=== PATIENT | female | born 1995 | race Hispanic/Latino ===

== ENCOUNTER 2020-11-11 06:01 | Inpatient (IN) | payer MEDICAID, SELFPAY ==
[2020-11-11] VITALS (22 sets, daily range): BP systolic 101–127; BP diastolic 39–97; PULSE 54–176; RESP 16–18; TEMP 36.4–36.7; O2SAT 100; BMI 27.6
--- NOTE | 2020-11-11 07:02 | LDADM ---
This patient, Lissette Fish, was admitted to Labor/Delivery/Recovery 106 on 11/11/20 at 06:01. Plans for labor, pain management and were discussed with patient. Patient/family oriented to hospital policies and general routines including ID bracelet, bed and alarms, visiting hours, pain management, procedures, bathroom and other care routines, personal items, smoking policy, room service/diet and guest tray routines, infant security routines, and visiting hours. Patient/Family are encouraged to report perceived risks to care and to ask questions if they do not understand what they are told or what they should do. See OBIX for further documentation.
[2020-11-11 07:18] LABS: Basophils Absolute Auto 0.1 K/mm3 (0.0-0.1); Basophils Percent Auto 0.6 % (0.2-1.2); Eosinophils Absolute Auto 0.1 K/mm3 (0-0.3); Eosinophils Percent Auto 0.5 % (0-4.4); Hematocrit 36.3 % (37.0-47.0); Hemoglobin 12.5 g/dL (12.0-15.0); Immature Granulocyte Absolute 0.24 K/mm3 (0.00-0.031); Immature Granulocyte Percent A 1.8 % (0-0.5); Lymphocytes Absolute Auto 1.54 K/mm3 (0.9-3.2); Lymphocytes Percent Auto 11.8 % (18.3-44.2); Mean Corpuscular HGB Conc 34.4 g/dl (32-36); Mean Corpuscular Hemoglobin 28.8 pg (26-34); Mean Corpuscular Volume 83.6 fl (80-100); Mean Platelet Volume 11.3 fl (7.4-10.4); Monocytes Absolute Auto 0.7 K/mm3 (0.1-0.6); Neutrophils Absolute Auto 10.5 K/mm3 (1.3-6.7); Neutrophils Percent Auto 80.3 % (45.5-73.1); Platelet Count Result 213 k/mm3 (150-375); Red Blood Count 4.34 M/mm3 (4.2-5.4); Red Cell Distribution Width 12.7 % (11.5-14.5)
--- NOTE | 2020-11-11 07:30 | WPDOBADMIT ---
Obstetrics - Admit Note Admission Note: record reviewed. No pertinent additions to the history and/or any subsequent changes in the physical findings that are not consistent with the expected course of the were found. Pt arrived in labor, GBS neg. SVE 4-5/80/-1, AROM moderate amount of clear, odorless, fluid Additions to the history and/or subsequent changes in the physical findings follow. None.
[2020-11-11] MEDS: LACTATED RINGERS 1,000 ML 125 ML IV CONT (07:37)
[2020-11-11] MEDS: fentaNYL CITRATE INJ (*CRX) 100 MCG/2 ML VIAL IV PUSH (08:52)
[2020-11-11] MEDS: OXYTOCIN 30 UNITS/NS 500 ML 30 UNITS/500 ML BAG 999 UNITS IV CONT (09:32)
--- NOTE | 2020-11-11 09:41 | PM.OBPRVD ---
OB - Delivery Note Procedure Delivery date: 11/11/20 Procedure: vaginal delivery Intrapartal events: None Induction method: none Delivery augmentation: rupture of membranes Delivery monitor: external FHT and external uterine Route of delivery: Laceration Description: None Specimen: No Quantitative Blood Loss (ml): 27 Anesthesia type: None Disposition: other () Baby Date of : 11/11/20 Time of : 09:29 Weeks of gestation at delivery: 39 gender: Female Weight (pounds): 6 Weight (ounces): 11 presentation: vertex position: Left Occiput Anterior Placenta delivery description: Spontaneous cord vessel description: 3 Vessels and Clamped/Cut score one minute: 6 score five minutes: 9 Narrative: Mom and baby in stable condition.
[2020-11-11] MEDS: OXYTOCIN 30 UNITS/NS 500 ML 30 UNITS/500 ML BAG 125 UNITS IV CONT (10:00)
[2020-11-11] MEDS: IBUPROFEN 600 MG TABLET PO ×3 (10:02→23:50)
--- NOTE | 2020-11-11 12:38 | PC.NURSE ---
Pt arrived on unit via wheelchair accompanied by spouse and and taken to room 290. PT oriented to room and surrounding area. PT introductions made and plan of care discussed per post , pain management, breast feeding, daily care activities. Welcome packet reviewed and discussed. PT verbalized understanding of such care.
--- NOTE | 2020-11-11 12:53 | OBPPTRN ---
Patient transferred to post room #290 via W/C . Support person present. Oriented to unit, room, information board, rooming in, admission packet and security measures. Patient verbalizes understanding.
[2020-11-11] MEDS: DOCUSATE SODIUM 100 MG CAPSULE PO (16:47)
[2020-11-11] MEDS: LANOLIN (LANSINOH) 7.5 GM CREAM 1 APPLIC TOPICAL (18:32)
[2020-11-12] MEDS: ACETAMINOPHEN 325 MG TABLET 650 MG PO (05:24)
[2020-11-12 05:52] LABS: Hematocrit 31.5 % (37.0-47.0); Hemoglobin 10.9 g/dL (12.0-15.0)
--- NOTE | 2020-11-12 08:21 | PM.OBPNVD ---
OB - PN: Subj Subjective Date/time seen: 11/12/20 08:21 Patient comments: no complaints baby status: doing well OB - PN: Obj Data Labs CBC & Chem 7: 11/12/20 05:29 Labs: Laboratory Results - last 24 hr 11/11/20 11/12/20 07:02 05:29 Hgb 10.9 L Hct 31.5 L Blood Type O Positive Antibody Screen Negative OB - PN A/P Plan day: 1 Plan: routine care and discharge home Comments: Pt desires discharge. Time Spent With Patient Time: Total time spent is greater than 50% in coordination of care (as documented) at patient's floor/unit and/or counseling patient: Time with patient: less than 15 minutes Review of Systems Review of Systems: All systems reviewed & are unremarkable except as noted in HPI and below Exam Narrative: Exam Narrative: Fundus firm and vaginal flow controlled. No lower ext redness, warmth, or edema. Negative homans. Const: General: comfortable Chest: Breast/axilla inspection: normal inspection of the breasts Resp: Effort & Inspection: normal respiratory effort Cardio: Rate: regular rate GI: GI Palp: Yes Soft to palpation Psych: Appearance: grossly normal Affect: normal affect Attitude: cooperative Thought content: Yes Normal thought content present Judgement: Good judgement present (Psych)
[2020-11-12 08:30] VITALS: PULSE 67; RESP 18; O2SAT 98
--- NOTE | 2020-11-12 08:30 | PC.NURSE ---
PT introductions made and plan of care discussed per post , pain management, breast feeding, daily care activities and pending discharge to home. PT verbalized understanding fo such care.
[2020-11-12 09:10] VITALS: BP 105/71; PULSE 67; RESP 18; TEMP 36.4; O2SAT 98
[2020-11-12] MEDS: MULTIVIT/MIN/PREN/FOL AC/IRON TABLET 1 TAB PO (10:51)
[2020-11-12] MEDS: DOCUSATE SODIUM 100 MG CAPSULE PO (10:51)
[2020-11-12] MEDS: IBUPROFEN 600 MG TABLET PO ×2 (10:51→15:57)
--- NOTE | 2020-11-12 14:45 | PC.NURSE ---
PT received discharge instructions per protocol and verbalized understanding of such care.
[2020-11-14 09:11] LABS: Rapid Plasma Reagin Non-Reactive (NonReactive)
[2020-11-14 11:26] VITALS: BP 112/74; PULSE 78; RESP 16; TEMP 37.5; O2SAT 100
--- NOTE | 2020-11-16 08:08 | PM.OBDSVD ---
DS: Admitting Diagnosis Admitting Diagnosis Admitting Diagnosis: Labor OB - DS: Summary OB Procedures : None OB Procedures Intrapartum: Spontaneous Vag Delivery OB Procedures: : None Time Spent with Patient Time attestation: Total time spent providing and/or coordinating discharge services: Discharge Plan Discharge Attending physician on discharge: Lilibeth Borja Consulting providers: Adriana Wood ; Lilibeth Borja Discharging Clinician: Adriana Wood Patient Disposition: Home, Self-Care Activity: pelvic rest Diet: as tolerated Discharge Instructions: Education: Mom and Baby Guide Given to: Mother Follow-Up: Call your delivering provider's office for an appointment to be seen in: 4 Weeks Mom and baby should come to the [facility] for the follow-up appointment. Appointment Date/Time: November 14, 2020 at 11:00 am What to expect at your follow-up visit: Blood Pressure Check Call [phone] if you are unable to keep your appointment time. BREAST CARE: * Wear a snug supportive bra. * For engorgement discomfort: Breast Feeding: * Apply warm moist washcloths * Express milk as needed to relieve engorgement * Wear loose clothing Bottle Feeding: * May apply ice packs * For sore nipples: * Identify correct latch-on * Apply warm moist washcloths before and after nursing * Air dry nipples after nursing * May apply Lansinoh cream to nipples PERINEAL CARE: * Until bleeding stops, use your fernanda bottle after urinating * Change your pad frequently throughout the day * You may take sitz baths several times a day (fill your bathtub with warm water and soak for 20 minutes.) Do NOT bathe in the water * No tub baths until seen by your physician - You may shower ACTIVITY: * Rest as much as possible. * Do not exercise or lift anything heavier than your baby (such as laundry or other children.) * Avoid stairs or driving as much as possible. * Do not put anything into the vagina. No douching, tampons, or sexual activity until seen by physician. NOTIFY PHYSICIAN IF YOU HAVE ANY QUESTIONS OR IF ANY OF THE FOLLOWING SYMPTOMS OCCUR: * If your perineum becomes red, swollen, or more painful than what you have experienced in the hospital. * If your vaginal bleeding becomes foul smelling. * If your vaginal bleeding becomes more heavy than a period or if your bleeding changes from pink to bright red. However, you may pass an occasional walnut-sized clot once or twice for the first week . * If you experience a sharp, shooting pain in you calves. * If you discover a hard, reddened area on your breast or if you experience flu-like symptoms. *If you have a fever of 100.4 or greater DIET: * Eat regular, well-balanced meals. * Drink plenty of fluids daily. If , drink to thirst. Patient Instructions: Antibiotic Form Stand Alone Forms: General Discharge Information Follow-up/Referrals: Adriana Wood CNM [Certified Nurse Senior Network Systems Engineer] - Discharge Medications: Continued prenat.vits,verena,[id number] Tablet 1 tablet PO DAILY RF: 0 Date of admission: 11/11/20 06:01 Primary Care Provider: PHYSICIAN,RECEIVING TANK OPERATOR Admitting Provider: Kirill Biswas Attending physician on admission: Kirill Biswas Condition: Stable
== END 2020-11-12 15:27 | disposition home or self-care (01) | DRG 560 ==
LOC: ANHLDR 06:48 → ANHOB2 12:43
PROVIDERS: Advanced Practice Midwife; Admitting Provider Obstetrics & Gynecology; Visit Provider Obstetrics & Gynecology
DX: O35.8XX0 Maternal care for other (suspected) fetal abnormality and damage, not applicable or unspecified (principal); Z3A.38 38 weeks gestation of pregnancy; Z37.0 Single live birth
CPT/HCPCS: 36415; 85014; 85018; 85025; 86592; 86850; 86900; 86901; A9270; J2590; J3010; J7120

== ENCOUNTER 2022-03-30 12:53 | Emergency (ER) | payer OTHER, SELFPAY ==
--- NOTE | 2022-03-30 12:58 | ED.FEMALEGU ---
HPI - Female Genitourinary General Chief complaint: Urogenital-Female Stated complaint: uti Time Seen by Provider: 03/30/22 12:58 Source: patient, RN notes reviewed and old records reviewed Mode of arrival: ambulatory Limitations: no limitations History of Present Illness HPI Narrative: 26-year-old female presents to the [facility] with complaints of urinary frequency, urgency burning and blood in her urine since yesterday. Patient has a Nexplanon implant, denies chances of . Denies fevers, chest pain, abdominal pain. No CVA tenderness Related Data Allergies Allergy/AdvReac Type Severity Reaction Status Date / Time No Known Allergies Allergy Verified 10/28/20 13:44 Review of Systems Review of Systems: All systems reviewed & are unremarkable except as noted in HPI and below Constitutional: Constitutional: Reports no additional constitutional complaints, Denies chills and Denies fatigue Eyes: Eyes: Reports no additional eye complaints ENT: Reports system reviewed and no additional complaints, except as documented Cardiovascular: Cardiovascular: Reports no additional cardiovascular complaints Respiratory: Respiratory: Reports no additional respiratory complaints Gastrointestinal: Gastrointestinal: Reports no additional gastrointestinal complaints, Denies abdominal pain, Denies diarrhea, Denies nausea and Denies vomiting Genitourinary: Genitourinary: Reports as per HPI (Urinary frequency), Reports hematuria, Reports dysuria, Denies flank pain and Denies vaginal discharge Musculoskeletal: Musculoskeletal: Reports no additional musculoskeletal complaints and Denies back pain Integumentary/Breasts: Skin/Breast: Reports system reviewed and no additional complaints, except as docu Neurologic: Reports system reviewed and no additional complaints, except as documented Psychiatric: Psychiatric: Reports no additional psychiatric complaints Endocrine: Endocrine: Denies fatigue Allergic/Immunologic: Allergic/Immunologic: Reports no additional allergic/immunologic complaints [facility] Past Medical History Medical History Patient denies medical problems Surgical History Surgical History No pertinent past surgical history Family History Family History Father Hypertension High cholesterol Social History Social History Smoking status: Former smoker Additional smoking assessment comments: Never smoked daily; just occasional Substance use: never Spiritual care concerns: No Comments At the time of my signature, I reviewed and agree with the nursing past medical, surgical, social, and family history. There is no relevant family history pertinent to the patient complaint. Exam Const: General: healthy appearing, no acute distress and alert Nutritional Appearance: well nourished Orientation/consciousness: patient oriented x3 Limitations: no limitations HENMT: Head: normal to inspection Ears: external ears normal Eyes: Conjunctivae: conjunctivae normal Pupils: Equal, round and reactive pupils present Neck: Neck: normal visual inspection, no lymphadenopathy and no meningeal signs Chest: Chest palpation & inspection: normal inspection of the chest and abnormal inspection of the chest Resp: Effort & Inspection: normal respiratory effort Auscultation: clear to auscultation bilaterally Cardio: Rate: regular rate Rhythm: regular rhythm GI: GI Palp: Yes Soft to palpation and No Tenderness to palpation present (GI) : General: Yes no CVA tenderness Back/Spine/Pelvis: Back: no CVA tenderness Skin: General skin exam: normal color Rashes: no rashes Wounds: no wounds Neuro: General: patient oriented x3, moves all extremities, no meningeal signs and no focal motor deficits Cranial ne
[2022-03-30 13:03] VITALS: BP 121/73; PULSE 79; RESP 16; TEMP 36.6; O2SAT 100
[2022-03-30 13:04] VITALS: BP 121/73; PULSE 79; RESP 16; TEMP 36.6; O2SAT 100
== END 2022-03-30 13:17 | disposition home or self-care (01) ==
PROVIDERS: Emergency Provider Nurse Practitioner
DX: N30.01 Acute cystitis with hematuria (principal); Z87.891 Personal history of nicotine dependence
CPT/HCPCS: 81003; 87077; 87086; 87186; 99213; G0463

== ENCOUNTER 2024-05-30 13:40 | Emergency (ER) | payer SELFPAY ==
--- NOTE | ~2024-05-30 | US_ITS ---
EXAMINATION: US OB transvaginal INDICATION: 8 weeks, bleeding, cramping TECHNIQUE: Sonography of the pelvis was performed by transvaginal techniques. COMPARISON: None. RESULT: Uterus: 8.7 x 4.4 x 5.6 cm. Anteverted. Homogenous myometrium. Intrauterine gestational sac: Single present. Mean Sac Diameter: 1.92 cm, corresponding gestational age 6 week 6 days. Yolk sac: 0.4 cm . Embryo: Single present. [place] rump length: 1.18 cm, corresponding gestational age 7 weeks, 3 days. Gestational heart rate: absent, 0 bpm. Subgestational hematoma: Absent . Right ovary: 2.5 x 1.8 x 2.0 cm. Vascular flow is present. No adnexal mass. Left ovary: 3.0 x 1.8 x 2.2 cm. Vascular flow is present. No adnexal mass. Pelvis free fluid: None. IMPRESSION: Sonographic findings of demise. No heart motion detected at greater than 7 weeks gestatio nal age. Estimated Gestational Age: 7 weeks, 3 days by crown rump length. Reviewed, dictated and finalized at location K. IMPRESSION: Sonographic findings of demise. No heart motion detected at greater than 7 weeks gestational age. Estimated Gestational Age: 7 weeks, 3 days by crown rump length.
[2024-05-30 13:43] VITALS: BP 125/76; PULSE 87; RESP 16; TEMP 36.4; O2SAT 98
--- NOTE | 2024-05-30 17:13 | ED.GENADULT ---
HPI - General Adult General Chief complaint: Vaginal Bleeding Stated complaint: 8 WEEKS VA BLEED Time Seen by Provider: 05/30/24 16:59 History of Present Illness HPI narrative: patient is a 28-year-old female who is a that presents to the ER with vaginal bleeding. Has gone through 1 panty liner since this morning. Unsure on blood type. Typically goes to the [facility] [place]. Mild lower abdominal cramping. No vaginal discharge. Did not have intercourse last night. Related Data Allergies Allergy/AdvReac Type Severity Reaction Status Date / Time No Known Allergies Allergy Verified 05/30/24 16:53 Review of Systems Review of Systems: All systems reviewed & are unremarkable except as noted in HPI and below Constitutional: Constitutional: Reports no additional constitutional complaints ENT: Reports system reviewed and no additional complaints, except as documented Cardiovascular: Cardiovascular: Reports no additional cardiovascular complaints Respiratory: Respiratory: Reports no additional respiratory complaints Genitourinary: Genitourinary: Reports abnormal vaginal bleeding, Denies nocturia, Denies dysuria, Reports pelvic pain and Denies vaginal discharge PMFSH Past Medical History Medical History Patient denies medical problems Surgical History Surgical History No pertinent past surgical history Family History Family History Father Hypertension High cholesterol Social History Social History Smoking status: Former smoker Additional smoking assessment comments: Never smoked daily; just occasional Substance use: never Spiritual care concerns: No Exam Narrative: GENERAL: Well-appearing, well-nourished, and in no acute distress. HEAD: Normocephalic, atraumatic. ENT: Mucous membranes moist. CHEST: Clear to auscultation. No respiratory distress. HEART: Regular rate and rhythm. Normal peripheral pulses. ABDOMEN: Soft, nontender, nondistended. PELVIC: Small amount of blood within the vaginal vault. Cervical os is dilated to 1 cm and there is mucus discharge coming out. No CMT. EXTREMITIES: Normal range of motion. No edema. SKIN: Warm, dry, no rash. NEURO: Alert and oriented x3. PSYCH: Normal mood and affect. Course Course Emergency Course: Patient resting comfortably. Informed of imaging and lab results. Patient does have demise. Discussed case with Dr. Biswas. Patient is to call the office in 2 days to schedule close follow-up. Patient has been given bleeding precautions. She has been provided with images of the fetus from ultrasound. She will be given pain control for home. Vital Signs Vital signs: Vital Signs Temperature 97.6 F 05/30/24 13:43 Pulse Rate 87 05/30/24 13:43 Respiratory Rate 16 05/30/24 13:43 Blood Pressure 125/76 05/30/24 13:43 Pulse Oximetry 98 05/30/24 13:43 Temperature 97.6 F 05/30/24 13:43 Pulse Rate 87 05/30/24 13:43 Respiratory Rate 16 05/30/24 13:43 Blood Pressure 125/76 05/30/24 13:43 Pulse Oximetry 98 05/30/24 13:43 Medical Decision Making Vital Signs Vital Signs: Vital Signs Temperature 97.6 F 05/30/24 13:43 Pulse Rate 87 05/30/24 13:43 Respiratory Rate 16 05/30/24 13:43 Blood Pressure 125/76 05/30/24 13:43 Pulse Oximetry 98 05/30/24 13:43 Temperature 97.6 F 05/30/24 13:43 Pulse Rate 87 05/30/24 13:43 Respiratory Rate 16 05/30/24 13:43 Blood Pressure 125/76 05/30/24 13:43 Pulse Oximetry 98 05/30/24 13:43 Lab Data 05/30/24 17:23 05/30/24 17:23 Labs: Lab Results 05/30/24 Range/Units 17:23 WBC 10.9 H (4.5-10.0) K/mm3 RBC 4.20 (4.2-5.4) M/mm3 Hgb 12.0 (12.0-15.0) g/d
[2024-05-30 17:29] LABS: Basophils Absolute Auto 0.1 K/mm3 (0.0-0.1); Basophils Percent Auto 0.5 % (0.2-1.2); Eosinophils Absolute Auto 0.2 K/mm3 (0-0.3); Eosinophils Percent Auto 2.2 % (0-4.4); Hematocrit 35.3 % (37.0-47.0); Immature Granulocyte Absolute 0.03 K/mm3 (0.00-0.031); Immature Granulocyte Percent A 0.3 % (0-0.5); Lymphocytes Absolute Auto 2.82 K/mm3 (0.9-3.2); Lymphocytes Percent Auto 25.8 % (18.3-44.2); Mean Corpuscular Hemoglobin 28.6 pg (26-34); Mean Platelet Volume 10.2 fl (7.4-10.4); Monocytes Absolute Auto 0.7 K/mm3 (0.1-0.6); Monocytes Percent Auto 6.6 % (2.6-8.5); Neutrophils Absolute Auto 7.1 K/mm3 (1.3-6.7); Neutrophils Percent Auto 64.6 % (45.5-73.1); Platelet Count Result 279 k/mm3 (150-375); Red Cell Distribution Width 14.5 % (11.5-14.5); White Blood Count 10.9 K/mm3 (4.5-10.0)
[2024-05-30 17:39] LABS: Alanine Aminotransferase 15 U/L (6-35); Albumin Level 4.2 g/dL (3.5-5.1); Alkaline Phosphatase 51 U/L (38-126); Anion Gap 9 mmol/L (4-12); Aspartate Amino Transferase 22 U/L (14-36); Bilirubin,Total 0.3 mg/dL (0.2-1.3); Blood Urea Nitrogen 9 mg/dL (7-17); Calcium 8.7 mg/dL (8.4-10.2); Carbon Dioxide 23 mmol/L (22-30); Chloride 105 mmol/L (98-107); Estimated CRCL calculation 106 ml/min; Estimated Glomerular Filt Rate > 60; Glucose 79 mg/dL (65-110); Potassium 3.8 mmol/L (3.4-5.0); Sodium 137 mmol/L (137-145)
[2024-05-30 17:42] LABS: INR 1.1; Partial Thromboplastin Time 31.9 Seconds (22.3-36.8)
== END 2024-05-30 20:30 | disposition home or self-care (01) ==
PROVIDERS: Emergency Provider Emergency Medicine
DX: O03.4 Incomplete spontaneous abortion without complication (principal); Z87.891 Personal history of nicotine dependence
CPT/HCPCS: 36415; 76817; 80053; 84702; 85025; 85461; 85610; 85730; 86850; 86900; 86901; 99284

== ENCOUNTER 2024-06-01 14:22 | Outpatient (CLI) | payer SELFPAY | END 2024-06-01 14:23 | disposition home or self-care (01) | PROVIDERS: Visit Provider Obstetrics & Gynecology | DX: O03.9 Complete or unspecified spontaneous abortion without complication (principal) | CPT/HCPCS: 36415; 84702 ==

== ENCOUNTER 2025-08-05 06:47 | Inpatient (IN) | payer OTHER, SELFPAY ==
[2025-08-05] VITALS (142 sets, daily range): BP systolic 67–123; BP diastolic 13–98; PULSE 55–137; RESP 16–18; TEMP 36.5–36.9; O2SAT 92–100; BMI 30.7
--- NOTE | 2025-08-05 07:43 | LDADM ---
This patient, Lissette Fish, was admitted to Labor/Delivery/Recovery 106 on 08/05/25 at 06:47. Plans for labor, pain management and were discussed with patient. Patient/family oriented to hospital policies and general routines including ID bracelet, bed and alarms, visiting hours, pain management, procedures, bathroom and other care routines, personal items, smoking policy, room service/diet and guest tray routines, infant security routines, and visiting hours. Patient/Family are encouraged to report perceived risks to care and to ask questions if they do not understand what they are told or what they should do. See OBIX for further documentation.
--- NOTE | 2025-08-05 07:48 | WPDOBADMIT ---
Obstetrics - Admit Note Admission Note: record reviewed. No pertinent additions to the history and/or any subsequent changes in the physical findings that are not consistent with the expected course of the were found. Additions to the history and/or subsequent changes in the physical findings follow. admit for cholestasis, sve /-2 clear fluid, anticipate vaginal dellivery
[2025-08-05 07:52] LABS: Hematocrit 34.1 % (37.0-47.0); Hemoglobin 11.2 g/dL (12.0-15.0); Immature Granulocyte Percent A 0.7 % (0-0.5); Lymphocytes Absolute Auto 1.93 K/mm3 (0.9-3.2); Mean Corpuscular HGB Conc 32.8 g/dl (32-36); Mean Corpuscular Hemoglobin 27.9 pg (26-34); Mean Corpuscular Volume 85.0 fl (80-100); Nucleated Red Blood Cells Absolute Auto 0.000 K/mm3 (0.0-0.012); Nucleated Red Blood Cells Perc 0.0 % (0.0-0.2); Platelet Count Result 208 k/mm3 (150-375); Red Blood Count 4.01 M/mm3 (4.2-5.4); White Blood Count 8.3 K/mm3 (4.5-10.0)
[2025-08-05] MEDS: LACTATED RINGERS 1,000 ML 125 ML IV CONT (08:47)
[2025-08-05 08:59] LABS: HIV 1/2 Ab P24 Ag Result Negative (Negative)
[2025-08-05] MEDS: OXYTOCIN 30 UNITS/NS 500 ML 30 UNITS/500 ML BAG IV CONT ×2 (09:02→17:07)
[2025-08-05 09:40] LABS: Syphilis IgG/IgM Antibody Non-Reactive (Nonreactive)
[2025-08-05] MEDS: ONDANSETRON INJ 4 MG/2 ML VIAL IV PUSH (15:21)
[2025-08-05] MEDS: fentaNYL CITRATE INJ (*CRX) 100 MCG/2 ML VIAL IV PUSH (15:21)
[2025-08-05] MEDS: LIDOCAINE 1% LOCAL INJ 20 ML VIAL (16:26)
--- NOTE | 2025-08-05 16:36 | PM.OBPRVD ---
OB - Vaginal Delivery Note Procedure Delivery date: 08/05/25 Induction method: AROM and Per Pitocin Protocol Delivery monitor: External FHT and External Uterine Route of delivery: Episiotomy description: None Laceration Description: Labial Delivery repair: vicryl Specimen: No Quantitative Blood Loss (ml): 200 Anesthesia type: None Disposition: Floor Complications: No immediate complications
[2025-08-05] MEDS: WITCH HAZEL 40 PADS 1 PAD TOPICAL (19:35)
[2025-08-05] MEDS: BENZOCAINE 20% AER SPR (*SP) 56 GM CAN 1 SPRAY TOPICAL (19:35)
--- NOTE | 2025-08-05 20:25 | OBPPTRN ---
Patient and baby transferred to post room #281 via wheelchair at 19:41. Support person present. Oriented to unit, room, information board, rooming in, admission packet and security measures. Patient verbalizes understanding.
[2025-08-05] MEDS: IBUPROFEN 600 MG TABLET PO (21:52)
[2025-08-05] MEDS: LANOLIN (LANSINOH) 7.5 GM CREAM 1 APPLIC TOPICAL (21:53)
[2025-08-06 03:50] VITALS: BP 114/74; PULSE 60; RESP 15; TEMP 36.1; O2SAT 99
[2025-08-06 05:51] LABS: Hematocrit 30.9 % (37.0-47.0); Hemoglobin 10.2 g/dL (12.0-15.0)
[2025-08-06 07:05] VITALS: BP 105/63; PULSE 72; RESP 16; TEMP 36.8; O2SAT 99
--- NOTE | 2025-08-06 07:36 | P.PNOB_ITS ---
OB - PN: Subj Subjective Date/time seen: 08/06/25 07:36 Interval history: pp day 1 doing well OB - PN: Obj Data Labs 08/06/25 03:48 Labs: Laboratory Results - last 24 hr 08/05/25 08/06/25 07:44 03:48 WBC 8.3 RBC 4.01 L Hgb 11.2 L 10.2 L Hct 34.1 L 30.9 L MCV 85.0 MCH 27.9 MCHC 32.8 RDW 16.6 H Plt Count 208 MPV 11.0 H Immature Gran % (Auto) 0.7 H Neut % (Auto) 67.1 Lymph % (Auto) 23.4 [place] % (Auto) 6.5 Eos % (Auto) 1.9 Baso % (Auto) 0.4 Lymph # (Auto) 1.93 [place] # (Auto) 0.5 Eos # (Auto) 0.2 Baso # (Auto) 0.0 Abs Immat Gran (auto) 0.06 H Absolute Neuts (auto) 5.5 Absolute Nucleated RBC 0.000 Nucleated RBC % 0.0 Syphilis IgG/IgM Ab Non-reactive HIV 1&2 Ab/P24 Ag 4thGn Negative Blood Type O Positive Antibody Screen Negative OB - PN A/P Plan day: 1 Plan: routine care Time Spent With Patient Time: Total time spent is greater than 50% in coordination of care (as documented) at patient's floor/unit and/or counseling patient: Review of Systems 2 Review of Systems: All systems reviewed & are unremarkable except as noted in HPI and below Exam 2 Const: General: cooperative, healthy appearing and comfortable Resp: Effort & Inspection: normal respiratory effort Cardio: Rate: regular rate GI: Other: soft Back/Spine/Pelvis: Back: no CVA tenderness Skin: General skin exam: normal color Neuro: General: patient oriented x3
[2025-08-06] MEDS: MULTIVIT/MIN/PREN/FOL AC/IRON TABLET 1 TAB PO (09:17)
[2025-08-06] MEDS: DOCUSATE SODIUM 100 MG CAPSULE PO (09:17)
[2025-08-06 12:15] VITALS: BP 99/56; PULSE 66; RESP 16; TEMP 37.3; O2SAT 98
[2025-08-06 19:15] VITALS: BP 110/74; PULSE 56; RESP 16; TEMP 36.6; O2SAT 99
[2025-08-07 09:05] VITALS: BP 106/71; PULSE 64; RESP 16; TEMP 36.9; O2SAT 100
[2025-08-07] MEDS: MULTIVIT/MIN/PREN/FOL AC/IRON TABLET 1 TAB PO (09:08)
[2025-08-07] MEDS: DOCUSATE SODIUM 100 MG CAPSULE PO (09:08)
--- NOTE | 2025-08-07 09:58 | P.PNOB_ITS ---
OB - PN: Subj Subjective Date/time seen: 08/07/25 09:58 Interval history: pp day 1 doing well Patient comments: no complaints, pain well controlled and tolerating diet OB - PN: Obj Data Labs 08/06/25 03:48 OB - PN A/P Plan day: 2 Plan: routine care and discharge home Time Spent With Patient Time: Total time spent is greater than 50% in coordination of care (as documented) at patient's floor/unit and/or counseling patient: Exam 2 Const: General: comfortable and no acute distress Resp: Effort & Inspection: normal respiratory effort Auscultation: no rales, no rhonchi and no wheezes Cardio: Rate: regular rate Heart sounds: no click, no murmurs and no rubs GI: GI Palp: Yes Soft to palpation and No Tenderness to palpation present (GI) Auscultation: normal bowel sounds Extrem: General: normal to inspection, no pedal edema and no calf tenderness
--- NOTE | 2025-08-07 10:15 | PC.NURSE ---
Consulted with mother concerning needs and she shared her ability to independently latch infant optimally without pain. She has some nipple soreness due to a poor fit of mother's nipple in 's mouth. She experienced this with her last baby and knows how to achieve a deep latch to reduce pain. Mother is feeding appropriately for growth of and understands stimulating to eat if needed. Infant has had appropriate feedings in the last 24 hours meets the outcomes for weight, output, blood sugar and jaundice at this time. Reinforced understanding of milk production, signs of adequate intake, prevention/relief of engorgement, plugged ducts, mastitis, community resources (has [facility], she will notify them of delivery), and when to call a provider using the resource of the feeding sheet along with the mom and baby guide. She has a breast pump at home. Mother voiced understanding of the information shared, is confident to continue effectively her at home, when to call for assistance, denies any additional assistance or education at this time. Reported to the Primary RN.
[2025-08-09 10:25] VITALS: BP 136/79; PULSE 60; RESP 16; TEMP 36.6; O2SAT 99
--- NOTE | 2025-09-05 19:06 | P.DS_ITS ---
DS: Admitting Diagnosis Discharge Date 08/07/25 Admitting Diagnosis Term DS: Discharge Diagnosis Discharge Diagnosis (1) Post term , delivered: Code(s): O48.0 - Post-term Status: Acute OB - DS: Summary OB Procedures : None OB Procedures Intrapartum: Spontaneous Vag Delivery OB Procedures: : None Peripartum Data Laceration Description: Labial Episiotomy description: None Time Spent with Patient Time attestation: Total time spent providing and/or coordinating discharge services: Discharge Plan Discharge Attending physician on discharge: Adan Biswas Consulting providers: Lilibeth Borja Discharging Clinician: Lilibeth Borja Patient Disposition: Home Activity: pelvic rest Diet: regular Discharge Instructions: Education: Mom and Baby Guide Given to: Mother Follow-Up: Call your delivering provider's office for an appointment to be seen in: 6 Weeks Mom and baby should come to the [facility] for the follow-up appointment. Appointment Date/Time: August 09, 2025 at 10:00 am What to expect at your follow-up visit: Blood Pressure Check Physical Assessment Call [phone] if you are unable to keep your appointment time. BREAST CARE: * Wear a snug supportive bra. * For engorgement discomfort: Breast Feeding: * Apply warm moist washcloths * Express milk as needed to relieve engorgement * Wear loose clothing Bottle Feeding: * May apply ice packs * For sore nipples: * Identify correct latch-on * Apply warm moist washcloths before and after nursing * Air dry nipples after nursing * May apply Lansinoh cream to nipples EPISIOTOMY/PERINEAL CARE: * Until bleeding stops, use your fernanda bottle after urinating * Change your pad frequently throughout the day * You may take sitz baths several times a day (fill your bathtub with warm water and soak for 20 minutes.) Do NOT bathe in the water * No tub baths until seen by your physician - You may shower ACTIVITY: * Rest as much as possible. * Do not exercise or lift anything heavier than your baby (such as laundry or other children.) * Avoid stairs or driving as much as possible. * Do not put anything into the vagina. No douching, tampons, or sexual activity until seen by physician. NOTIFY PHYSICIAN IF YOU HAVE ANY QUESTIONS OR IF ANY OF THE FOLLOWING SYMPTOMS O CCUR: * If your episiotomy or incision becomes red, swollen, or more painful than what you have experienced in the hospital. * If your vaginal bleeding becomes foul smelling. * If your vaginal bleeding becomes more heavy than a period or if your bleeding changes from pink to bright red. However, you may pass an occasional walnut- sized clot once or twice for the first week . * If you experience a sharp, shooting pain in you calves. * If you discover a hard, reddened area on your breast or if you experience flu- like symptoms. DIET: * Eat regular, well-balanced meals. * Drink plenty of fluids daily. If , drink to thirst. Patient Language: Malay Stand Alone Forms: General Discharge Information Follow-up/Referrals: Adan Biswas MD [Physician, [employer]] - 4 Weeks Discharge Medications: Continued PNV no.[id number] fumarate-FA [] 28 mg iron- 800 mcg tablet 1 tablet PO DAILY ursodiol 300 mg capsule 300 mg PO Q12H Slow Fe 137 mg (45 mg iron) tablet extended release 137 mg PO DAILY Date of admission: 08/05/25 06:47 Primary Care Provider: UNKNOWN,DOCTOR Admitting Provider: Adan Biswas Attending physician on admission: Adan Biswas Condition: Stable
== END 2025-08-07 12:54 | disposition home or self-care (01) | DRG 560 ==
LOC: ANHLDR 06:54 → ANHOB2 19:53
PROVIDERS: Admitting Provider Obstetrics & Gynecology; Visit Provider Obstetrics & Gynecology
DX: O26.643 Intrahepatic cholestasis of pregnancy, third trimester (principal); O70.0 First degree perineal laceration during delivery; Z3A.37 37 weeks gestation of pregnancy; Z37.0 Single live birth
CPT/HCPCS: 36415; 85014; 85018; 85025; 86593; 86703; 86850; 86900; 86901; A9270; G0432; J2003; J2405; J2590; J3010; J7120